=== PATIENT | male | born 1955 | race African-American/Black ===

== ENCOUNTER 2017-07-21 12:23 | Outpatient (CLI) | payer OTHER ==
--- NOTE | 2017-07-21 13:23 | RAD ---
RIGHT SHOULDER RADIOGRAPHS TWO VIEWS: 07/21/2017 PROVIDED CLINICAL HISTORY: Right shoulder pain. FINDINGS: There is no evidence for fracture. The glenohumeral relationship is suboptimally evaluated without a scapular Y or axillary view. Acromioclavicular joint osteoarthrosis is noted. The visualized right lung field appears clear. IMPRESSION: Acromioclavicular joint osteoarthrosis. POS: OFF
--- NOTE | 2017-07-21 13:25 | RAD ---
LEFT KNEE RADIOGRAPHS TWO VIEWS: 07/21/2017 PROVIDED CLINICAL HISTORY: Left knee pain. FINDINGS: There is no evidence for fracture or other acute osseous abnormality. Osteophyte formation is seen a bout the knee. Mild medial femorotibial joint space narrowing. IMPRESSION: Degenerative change involving the left knee. POS: OFF
--- NOTE | 2017-07-21 13:32 | RAD ---
LUMBAR SPINE RADIOGRAPHS THREE VIEWS: 07/21/2017 PROVIDED CLINICAL HISTORY: Low back pain. FINDINGS: Five [id number] lumbar type vertebral bodies are present. Vertebral body heights appear preserv ed. Pedicles appear intact. Lower lumbar spine facet degenerative changes are seen. IMPRESSION: Lower lumbar spine facet degenerative change. POS: OFF
== END 2017-07-21 12:24 | disposition home or self-care (01) ==
LOC: NAV RAD 12:23
PROVIDERS: ATTEND Family Medicine
DX: M54.5 Low back pain (principal); M47.896 Other spondylosis, lumbar region; M17.12 Unilateral primary osteoarthritis, left knee; M19.011 Primary osteoarthritis, right shoulder
CPT/HCPCS: 72100